=== PATIENT | female | born 1975 | race Caucasian/White ===

== ENCOUNTER 2019-05-11 16:45 | Outpatient (RCR) | payer OTHER | END 2019-05-14 | LOC: M PT 16:45 | PROVIDERS: ATTEND Orthopaedic Surgery | DX: Z47.89 Encounter for other orthopedic aftercare (principal) ==

== ENCOUNTER 2019-06-13 16:34 | Outpatient (RCR) | payer OTHER | END 2019-06-14 | disposition home or self-care (01) | LOC: M PT 16:34 | PROVIDERS: ATTEND Orthopaedic Surgery | DX: M25.572 Pain in left ankle and joints of left foot (principal) ==

== ENCOUNTER → 2019-12-01 | Outpatient (CLI) | payer OTHER ==
--- NOTE | 2019-12-01 10:14 | REP ---
MRI LEFT FOOT WITHOUT CONTRAST: HISTORY: Left foot pain. Question stress fracture. Comparison left foot MRI study is from December 14, 2018. No comparison radiographs are available. There are left ankle radiographs from July 24, 2015. TECHNIQUE: Axial, coronal and sagittal imaging planes utilized. T1- and T2-weighted scans obtain usual fashion with and without fat saturation. MRI FINDINGS: Cortical and medullary bone signal intensity and normal in the metatarsals on T2-weighted scans. Tarsal bone signal intensity and phalangeal bone signal intensity of normal as well. There is mild edema in the subcutaneous fat adjacent to the medial and lateral malleoli at the ankle. A small quantity of joint fluid is visible at the 1st metatarsophalangeal joint. No other joint effusion is evident. There is plantar heel spurring. Plantar fascia appears smooth. There is no evidence to suggest tarsal coalition. No soft tissue mass or cyst is seen. No evidence of subchondral defect lesion. IMPRESSION: Mild soft tissue swelling. No MR evidence to suggest stress fracture or other acute abnormality. There is a small quantity of fluid at the 1st MTP joint. Electronically Signed by Noe Sky MD 12/01/2019 10:18 A
== END ==
LOC: M RAD 07:40
PROVIDERS: ATTEND Orthopaedic Surgery
DX: M79.89 Other specified soft tissue disorders (principal)

== ENCOUNTER 2020-01-16 18:17 | Observation (INO) | payer OTHER ==
[2020-01-17] MEDS ORDERED: VANCOMYCIN 1000MG/20ML VIAL ONE (01:26)
[2020-01-17] MEDS ORDERED: QUEtiapine FUMARATE **XR** 200MG TABLET ONE (09:00)
[2020-01-17] MEDS ORDERED: QUEtiapine FUMERATE XR 50 MG TABER ONE (09:00)
[2020-01-17] MEDS ORDERED: PROPRANOLOL 20 MG TAB ONE (09:00)
[2020-01-17] MEDS ORDERED: ACETAMINOPHEN TAB 650MG DOSE (2X325MG) ONE (10:00)
[2020-01-17] MEDS ORDERED: LEVOTHYROXINE 50MCG TABLET (0.05MG) ONE (10:00)
[2020-01-17] MEDS ORDERED: lamoTRIgine 100MG TAB ONE (10:00)
[2020-01-17] MEDS ORDERED: metFORMIN (GLUCOPHAGE) 500 MG TAB ONE (10:00)
[2020-01-17] MEDS ORDERED: lamoTRIgine 100MG TAB As Ordered ONE (10:03)
[2020-01-17] MEDS ORDERED: metFORMIN (GLUCOPHAGE) 500 MG TAB As Ordered ONE (10:03)
[2020-01-17] MEDS ORDERED: ACETAMINOPHEN TAB 650MG DOSE (2X325MG) As Ordered ONE (10:03)
[2020-01-17] MEDS ORDERED: LEVOTHYROXINE 50MCG TABLET (0.05MG) As Ordered ONE (10:04)
[2020-01-17] MEDS ORDERED: valACYclovir HCL 500 MG TAB As Ordered ONE (12:47)
[2020-01-17] MEDS ORDERED: valACYclovir HCL 500 MG TAB ONE (12:47)
[2020-03-08 01:30] LABS: BASO # 0.1 10^3/uL (0.0-0.2); BASO % 0.4 % (0.0-1.0); EOS # 0.2 10^3/uL (0.0-0.5); EOS % 1.6 % (0.0-3.0); HEMATOCRIT 40.5 % (36.0-47.0); HEMOGLOBIN 12.3 g/dl (12.0-15.5); LYMPH # 3.6 10^3/uL (1.5-5.0); LYMPH % 24.8 % (24.0-44.0); MEAN CORPUSCULAR HEMOGLOBIN 25.4 pg (27.0-33.0); MEAN CORPUSCULAR HGB CONC 30.4 g/dl (32.0-36.5); MEAN CORPUSCULAR VOLUME 83.5 fl (80.0-96.0); MONO # 0.8 10^3/uL (0.0-0.8); MONO % 5.2 % (0.0-5.0); NEUTROPHILS # 9.8 10^3/uL (1.5-8.5); NEUTROPHILS % 67.2 % (36.0-66.0); PLATELET COUNT, AUTOMATED 317 10^3/uL (150-450); RED BLOOD COUNT 4.85 10^6/uL (4.00-5.40); WHITE BLOOD COUNT 14.6 10^3/uL (4.0-10.0)
[2020-03-25 14:06] LABS: HEMATOCRIT 36.6 % (36.0-47.0); HEMOGLOBIN 11.3 g/dl (12.0-15.5); INR 0.98; MEAN CORPUSCULAR HEMOGLOBIN 25.7 pg (27.0-33.0); MEAN CORPUSCULAR HGB CONC 30.9 g/dl (32.0-36.5); MEAN CORPUSCULAR VOLUME 83.4 fl (80.0-96.0); PLATELET COUNT, AUTOMATED 283 10^3/uL (150-450); PROTHROMBIN TIME 13.2 SECONDS (12.5-14.3); RED BLOOD COUNT 4.39 10^6/uL (4.00-5.40); WHITE BLOOD COUNT 11.9 10^3/uL (4.0-10.0)
[2020-03-26 00:59] LABS: HCG, SERUM QUALITATIVE NEGATIVE (NEGATIVE)
[2020-03-26 01:21] LABS: ALBUMIN 3.8 GM/DL (3.2-5.2); ALT/SGPT 21 U/L (12-78); BILIRUBIN,DIRECT 0.1 MG/DL (0.0-0.2); BILIRUBIN,TOTAL 0.3 MG/DL (0.2-1.0); BLOOD UREA NITROGEN 8 MG/DL (7-18); C REACTIVE PROTEIN QUANTITATIV 2.54 MG/DL (0.00-0.30); CALCIUM LEVEL 9.5 MG/DL (8.5-10.1); CARBON DIOXIDE LEVEL 30 MEQ/L (21-32); CHLORIDE LEVEL 104 MEQ/L (98-107); CREATININE FOR GFR 0.91 MG/DL (0.55-1.30); GLOMERULAR FILTRATION RATE > 60.0 (>58); GLUCOSE, FASTING 92 MG/DL (70-100); NT-PRO BNP 59 PG/ML (<125); POTASSIUM SERUM 4.1 MEQ/L (3.5-5.1); SODIUM LEVEL 139 MEQ/L (136-145); TOTAL PROTEIN 7.5 GM/DL (6.4-8.2)
[2020-04-05 11:35] LABS: HSV-1 DNA SEE SEPARATE REPORT; HSV-2 DNA SEE SEPARATE REPORT
[2020-04-10 11:48] LABS: BLOOD UREA NITROGEN 7 MG/DL (7-18); C REACTIVE PROTEIN QUANTITATIV 2.56 MG/DL (0.00-0.30); CALCIUM LEVEL 8.9 MG/DL (8.5-10.1); CARBON DIOXIDE LEVEL 27 MEQ/L (21-32); CHLORIDE LEVEL 105 MEQ/L (98-107); CHOLESTEROL LEVEL 135 MG/DL (<200); CHOLESTEROL RISK RATIO 3.292 (<5); FREE T3 2.1 PG/ML (2.2-4.0); GLOMERULAR FILTRATION RATE > 60.0 (>58); GLUCOSE, FASTING 110 MG/DL (70-100); HDL CHOLESTEROL 41 MG/DL (>40); HEMOGLOBIN A1c 5.7 %; LDL CHOLESTEROL 65 MG/DL (<100); NON-HDL-C 94 MG/DL; SODIUM LEVEL 138 MEQ/L (136-145); TRIGLYCERIDES LEVEL 143 MG/DL (<150); TROPONIN I < 0.02 NG/ML (< 0.10)
== END 2020-01-17 14:35 | disposition home or self-care (01) ==
LOC: M ED 18:17 → M MSPAV 18:18 → UNDOADMIN 01-17 02:20 → M MSPAV 01-17 02:20 → UNDODISIN 01-17 09:40
PROVIDERS: ADMIT Internal Medicine
DX: L57.0 Actinic keratosis (principal); A60.00 Herpesviral infection of urogenital system, unspecified; E03.9 Hypothyroidism, unspecified; G43.909 Migraine, unspecified, not intractable, without status migrainosus; G47.00 Insomnia, unspecified; Z79.84 Long term (current) use of oral hypoglycemic drugs; Z79.899 Other long term (current) drug therapy; Z88.0 Allergy status to penicillin; Z88.2 Allergy status to sulfonamides; Z88.1 Allergy status to other antibiotic agents
CPT/HCPCS: 80048; 80061; 80076; 83036; 83880; 84443; 84481; 84703; 85025; 85027; 85610; 86140; 87040; 87529; 93970; J3370

== ENCOUNTER → 2020-01-31 | Outpatient (REF) | payer OTHER | LOC: M LAB REF 08:00 | PROVIDERS: ATTEND Dermatology | DX: L56.5 Disseminated superficial actinic porokeratosis (DSAP) (principal) ==

== ENCOUNTER → 2020-02-10 | Outpatient (REF) | payer OTHER | LOC: M LAB REF 17:27 | PROVIDERS: ATTEND Dermatology | DX: L03.115 Cellulitis of right lower limb (principal) ==

== ENCOUNTER → 2020-02-24 | Outpatient (CLI) | payer OTHER ==
--- NOTE | 2020-03-07 17:59 | REP ---
BILATERAL LOWER EXTREMITY DOPPLER ULTRASOUND: CLINICAL: Venous insufficiency, edema. TECHNIQUE: Real time, villasenor scale and color evaluation using linear high frequency transducer. FINDINGS: Ultrasound examination of the bilateral lower extremity deep venous structures from the common femoral vein to the popliteal vein demonstrate normal compressibility, flow and wave patterns in response to respiration and augmentation. There is no evidence for deep venous thrombosis bilaterally. The right lower extremity demonstrates minimal reflux in the right common femoral vein and right mid to distal superficial femoral vein, primarily with the bed tipped and to a lesser extent in the standing position. Minimal reflux was also noted in the anterior accessory and lesser saphenous veins. There is no evidence for reflux through the greater saphenous vein, which measures between 4.5 mm and 1.9 mm diameter. The left lower extremity demonstrates no reflux through the deep or superficial system and the greater saphenous vein measures between 5.0 and 3.2 mm diameter. IMPRESSION: 1. No evidence for deep venous thrombosis bilaterally. 2. Very minimal reflux noted in the right lower extremity as detailed above, primarily with the bed tipped. MTDD
== END ==
LOC: M RAD 07:01
PROVIDERS: ATTEND Physician Assistant
DX: I87.2 Venous insufficiency (chronic) (peripheral) (principal); R60.9 Edema, unspecified

== ENCOUNTER → 2020-09-05 | Outpatient (CLI) | payer OTHER ==
--- NOTE | 2020-09-05 18:37 | REPVR ---
PROCEDURE INFORMATION: Exam: MR Left Lower Extremity Other Than Joint Without Contrast; Foot Exam date and time: 09/05/2020 5:26 PM Age: 45 years old Clinical indication: Pain and condition or disease; Left; Patient HX: Non displaced FX 3rd mt bone lt foot TECHNIQUE: Imaging protocol: MR of the Left lower extremity without contrast. Exam focused on the foot. COMPARISON: 1. MRI FOOT WITHOUT CONTRAST LEFT 12/01/2019 7:56 AM 2. CR ANKLE COMPLETE LEFT 07/24/2015 2:08:19 PM FINDINGS: Bones and cartilage: There is no acute fracture. No stress fracture or stress reaction. Moderate plantar calcaneal spur which is slightly edematous. No other abnormal signal within bone. No active erosions or active periostitis. No dislocation. LIGAMENTS: Lisfranc ligament: Lisfranc ligament is intact. TENDONS: Flexor tendons of foot: Unremarkable. No evidence of tear. Tibialis posterior tendon: Unremarkable as visualized. Peroneal tendons: Unremarkable as visualized. Extensor tendons of foot: Unremarkable. No evidence of tear. Tibialis anterior tendon: Unremarkable as visualized. Achilles tendon: Minimal thickening of the distal Achilles tendon with minimal increased signal consistent with minimal tendinopathy. Mild adjacent soft tissue edema. Tarsal canal (Sinus tarsi): Unremarkable. Tarsal tunnel: Unremarkable. Muscles: Minimal edema in the interosseous musculature of the forefoot, as well as in the extensor digitorum and abductor hallucis muscles. Soft tissues: There is subcutaneous soft tissue edema at the dorsum of the foot, more pronounced dorsal laterally, and extending medially into the proximal to mid great toe. Additional subcutaneous edema posterior to the Achilles tendon. There is also edema medially more than laterally at the ankle. First metatarsophalangeal joint effusion without significant synovitis. Tibiotalar joint effusion with mild synovitis, and posterior subtalar joint effusion as well. Between the distal 2nd and 3rd metatarsals, there is a new small area of increased T2 and intermediately decreased T1 weighted signal with surrounding edema. This focus of abnormal signal measures 5 x 4 mm as on series 601, image 1 frame 20. Plantar fascia: Mild fusiform thickening of the central cord of the plantar fascia beginning approximately 1.2 cm distal to the Achilles attachment and extending for 2.0 cm proximal to distal, measuring up to 0.6 cm in thickness. This may be from a remote injury or prior plantar fasciitis, as there is no abnormal signal more indicative of a plantar fibroma. There may be minimal active plantar fasciitis with minimal edema around the central cord more proximally. No fluid-filled tear. Lateral cord is unremarkable. IMPRESSION: 1. No stress or other acute fracture is seen. 2. Minimal acute plantar fasciitis proximally, with plantar calcaneal spur which is mildly edematous and minimal adjacent soft tissue edema, and mild fusiform thickening without signal abnormality slightly more distally which may be from prior injury or prior plantar fasciitis. 3. New small focus of fluid signal within interosseous musculature between the distal 2nd and 3rd metatarsals measuring 5 x 4 mm with a small amount of surrounding edema. This could represent a ganglion cyst. Small bland or infected fluid collection could be present, or potentially a small hematoma which could be from a partial muscle tear. 4. Minimal distal Achilles tendinopathy. 5. Multifocal soft tissue edema in the dorsum of the foot, medial great toe, at the ankle, and adjacent to the Achilles tendon. This could be bland or infected. 6. Minimal edema in the interosseous musculature of the foot as well as in the abductor hallucis muscle. Electronically signed by: Lay Rosa On 09/05/2020 18:37:13 PM
== END ==
LOC: M PLARAD 15:06
PROVIDERS: ATTEND Physician Assistant
DX: S92.335D Nondisplaced fracture of third metatarsal bone, left foot, subsequent encounter for fracture with routine healing (principal)

== ENCOUNTER 2020-09-21 11:32 | Emergency (ER) | payer OTHER ==
[~2020-09-21] VITALS: Ht 165.1 cm; Wt 148.7 kg
[2020-09-21] MEDS ORDERED: LEVO50TA5 (11:42)
[2020-09-21] MEDS ORDERED: LAMO200T3 (11:42)
[2020-09-21] MEDS ORDERED: METF500T13 (11:42)
[2020-09-21] MEDS ORDERED: AIMO70IN (11:42)
[2020-09-21] MEDS ORDERED: NAPR-885 (11:42)
[2020-09-21] MEDS ORDERED: QUET400T42 (11:42)
[2020-09-21] MEDS ORDERED: CLON0.2T (11:42)
--- NOTE | 2020-09-21 13:04 | REP ---
INDICATION: edema. COMPARISON: 12/06/2019 and 02/24/2020. TECHNIQUE: Duplex ultrasound of the left lower extremity deep veins. FINDINGS: The deep veins demonstrate normal compression, normal Doppler color flow and normal Doppler waveforms with respiration augmentation at multiple levels from the popliteal vein to the common femoral vein. IMPRESSION: There is no left lower extremity deep vein thrombus. <Electronically signed by Jaylan Hensley > 09/21/20 1300
[2020-09-21] MEDS ORDERED: ACETAMINOPHEN 325 MG TAB PO ONE (13:05)
[2020-09-21 13:53] VITALS: BP 140/79
== END 2020-09-21 13:58 | disposition home or self-care (01) ==
LOC: M ED 11:32
DX: R60.0 Localized edema (principal); E11.9 Type 2 diabetes mellitus without complications; I10 Essential (primary) hypertension; Z79.84 Long term (current) use of oral hypoglycemic drugs; Z79.899 Other long term (current) drug therapy; Z88.0 Allergy status to penicillin; Z88.1 Allergy status to other antibiotic agents; Z88.8 Allergy status to other drugs, medicaments and biological substances

== ENCOUNTER → 2020-10-05 | Outpatient (CLI) | payer OTHER ==
[~2020-10-05] MED LIST: AIMO70IN; CLON0.2T; LAMO200T3; LEVO50TA5; METF500T13; NAPR-885; QUET400T42
--- NOTE | 2020-10-05 20:23 | REPVR ---
PROCEDURE INFORMATION: Exam: MR Left Lower Extremity Joint Without Contrast; Ankle Exam date and time: 10/05/2020 7:32 PM Age: 45 years old Clinical indication: Pain; Ankle and foot; Left; Additional info: FX of 3rd met bone TECHNIQUE: Imaging protocol: MR of the Left lower extremity without contrast. Exam focused on the ankle. COMPARISON: US Duplex, Ext,LOWER veins,unilat LEFT 09/21/2020 12:47 PM FINDINGS: Bones and cartilage: Unremarkable. Joint spaces: No joint effusion. LIGAMENTS: Distal tibiofibular syndesmosis: Unremarkable. No tear. Anterior talofibular ligament: Unremarkable. No tear. Posterior talofibular ligament: Unremarkable. No tear. Calcaneofibular ligament: Unremarkable. No tear. Deltoid ligament complex: Unremarkable. No tear. TENDONS: Flexor tendons of foot: Unremarkable as visualized. Tibialis posterior tendon: Unremarkable as visualized. Peroneal tendons: Unremarkable as visualized. Extensor tendons of foot: Unremarkable as visualized. Tibialis anterior tendon: Unremarkable as visualized. Achilles tendon: Unremarkable as visualized. Tarsal canal (Sinus tarsi): Unremarkable. Normal signal of the fat. Tarsal tunnel: Unremarkable. Muscles: Unremarkable. Soft tissues: Mild soft tissue swelling over the medial and lateral malleolus. Soft tissue swelling on the dorsum of the foot. Trace amount of fluid in the retrocalcaneal bursa. Plantar fascia: Plantar fascia is unremarkable. IMPRESSION: 1. No evidence of fracture of the visualized portion of the 3rd metatarsal. 2. Soft tissue swelling over the medial and lateral malleolus extending onto the dorsum of the foot. Electronically signed by: Ruby Zamarripa On 10/05/2020 20:22:55 PM
== END ==
LOC: M RAD 18:14
PROVIDERS: ATTEND Physician Assistant
DX: S92.335D Nondisplaced fracture of third metatarsal bone, left foot, subsequent encounter for fracture with routine healing (principal); X58.XXXD Exposure to other specified factors, subsequent encounter

== ENCOUNTER 2023-02-02 13:41 | Emergency (ER) | payer OTHER, SELFPAY ==
[~2023-02-02] VITALS: Ht 165.1 cm; Wt 131.8 kg
[2023-02-02 15:47] LABS: BASO # 0.1 10^3/uL (0.0-0.2); BASO % 0.6 % (0.0-1.0); EOS # 0.1 10^3/uL (0.0-0.5); EOS % 1.2 % (0.0-3.0); HEMATOCRIT 41.3 % (36.0-47.0); HEMOGLOBIN 12.7 g/dl (12.0-15.5); LYMPH # 3.3 10^3/uL (1.5-5.0); LYMPH % 29.2 % (24.0-44.0); MEAN CORPUSCULAR HGB CONC 30.8 g/dl (32.0-36.5); MEAN CORPUSCULAR VOLUME 87.7 fl (80.0-96.0); MONO # 0.7 10^3/uL (0.0-0.8); PLATELET COUNT, AUTOMATED 279 10^3/uL (150-450); RED BLOOD COUNT 4.71 10^6/uL (4.00-5.40); WHITE BLOOD COUNT 11.2 10^3/uL (4.0-10.0)
[2023-02-02] MEDS ORDERED: dexAMETHasone 20MG/5ML VIAL IV ONE (16:00)
[2023-02-02] MEDS ORDERED: diphenhydrAMINE 50MG/ML VIAL IV ONE (16:00)
[2023-02-02] MEDS ORDERED: METOCLOPRAMIDE INJ 10MG/2ML VIAL IV ONE (16:00)
[2023-02-02 16:01] LABS: INR 1.28; PROTHROMBIN TIME 15.7 SECONDS (12.5-14.5)
[2023-02-02 16:02] LABS: PARTIAL THROMBOPLASTIN TIME 33.3 SECONDS (24.8-34.2)
[2023-02-02 16:14] LABS: BLOOD UREA NITROGEN 11 MG/DL (9-23); CALCIUM LEVEL 9.3 MG/DL (8.5-10.1); CARBON DIOXIDE LEVEL 23 MMOL/L (20-31); CHLORIDE LEVEL 109 MMOL/L (98-107); CK-MB VALUE MASS < 1.0 NG/ML (<3.6); CREATININE FOR GFR 0.97 MG/DL (0.55-1.30); GLOMERULAR FILTRATION RATE > 60.0 (>58); GLUCOSE, FASTING 73 MG/DL (60-100); POTASSIUM SERUM 4.2 MMOL/L (3.5-5.1); SODIUM LEVEL 141 MMOL/L (136-145)
[2023-02-02 16:18] LABS: CPK CREATINE PHOSPHOKINASE 71 U/L (34-145)
[2023-02-02 16:28] LABS: RSV AMPLIFICATION NEGATIVE (NEGATIVE)
[2023-02-02] MEDS ORDERED: KETOROLAC 30 MG/ML 1ML VIAL IV ONE (18:45)
[2023-02-02] MEDS ORDERED: ACETAMINOPHEN *IV* 1,000 MG in IV 1 EA IV ONE (21:10)
[2023-02-02] MEDS ORDERED: diazePAM 10MG/2ML SYRINGE IV ONE (21:10)
[2023-02-02] MEDS ORDERED: MAG SULF 1GM/100ML (MAG RUN) 1 GM in IV 1 EA IV ONE (21:10)
[2023-02-03] MEDS ORDERED: RIME75TA PO (00:17)
[2023-02-03] MEDS ORDERED: PRED20TA PO (00:17)
[2023-02-03 00:32] VITALS: BP 124/78; TEMP 98.8; O2SAT 100
== END 2023-02-03 00:37 | disposition home or self-care (01) ==
LOC: M ED 13:41
DX: G43.911 Migraine, unspecified, intractable, with status migrainosus (principal); E03.9 Hypothyroidism, unspecified; F41.9 Anxiety disorder, unspecified; K21.9 Gastro-esophageal reflux disease without esophagitis; Z79.4 Long term (current) use of insulin; Z79.899 Other long term (current) drug therapy; Z79.52 Long term (current) use of systemic steroids
CPT/HCPCS: 70450; 70551; 71045; 80048; 82550; 82553; 84484; 85025; 85610; 85730; 87631; 93005; 93041; 96374; 96375; 99285; J0131; J1100; J1200; J1885; J2765; J3360; J3475

== ENCOUNTER 2023-10-09 11:03 | Day surgery (SDC) | payer OTHER ==
[~2023-10-09] VITALS: Ht 165.1 cm; Wt 142.9 kg
[~2023-10-09 11:03] MED LIST changes: +ATOR1TAB21 PO; +BAYE81TA7 PO; +CLON-589 PO; +D 50CAP2 PO; +FREM225A SC; +IFERCAP PO; +LAMO100T3 PO; +LEVO25TA5 PO; -METF500T13; +METF500T13 PO; +PANT40TA29 PO; +PRED20TA PO; +QUET400T2 PO; +RA N1TAB PO; +RIME75TA PO; +TOPI100T9 PO; +VERA120C3 PO; +VITA1CAP25 PO; +XARE20TA PO
[2023-10-09] MEDS: LR 1,000 ML IV SCH (12:21)
[2023-10-09] MEDS ORDERED: ONDANSETRON 4MG 2ML VIAL As Ordered ONE (13:39)
[2023-10-09] MEDS ORDERED: propofoL 200 MG/20 ML VIAL As Ordered ONE (13:40)
[2023-10-09] MEDS ORDERED: SUGAMMADEX SODIUM 500 MG/5 ML VIAL (BRIDION) As Ordered ONE (13:40)
[2023-10-09] MEDS ORDERED: ROCURONIUM BROMIDE 50MG/5ML VIAL As Ordered ONE (13:40)
[2023-10-09] MEDS ORDERED: KETOROLAC 60MG 2ML VIAL As Ordered ONE (13:40)
[2023-10-09] MEDS ORDERED: LIDOCAINE 2% 100MG/5ML SDV (FOR ANES.) As Ordered ONE (13:40)
[2023-10-09] MEDS ORDERED: MIDAZOLAM INJ 2MG/2ML VIAL As Ordered ONE (13:46)
[2023-10-09] MEDS ORDERED: fentaNYL 100 MCG/2 ML INJECTION As Ordered ONE (13:46)
[2023-10-09] MEDS ORDERED: ACETAMINOPHEN 1000MG 100ML IV BAG As Ordered ONE (14:20)
[2023-10-09] MEDS ORDERED: diphenhydrAMINE 50MG/ML VIAL IV PRN (14:50)
[2023-10-09] MEDS ORDERED: oxyCODONE 5MG TAB PO PRN (14:50)
[2023-10-09] MEDS ORDERED: LR 1,000 ML IV SCH (14:50)
[2023-10-09] MEDS: METOCLOPRAMIDE INJ 10MG/2ML VIAL IV PRN (15:03)
[2023-10-09] MEDS: ONDANSETRON 4MG 2ML VIAL IV PRN (15:03)
[2023-10-09 15:50] VITALS: BP 118/74; TEMP 97; O2SAT 100
== END 2023-10-09 16:08 | disposition home or self-care (01) ==
LOC: M SDC 11:03
PROVIDERS: ATTEND Surgery
DX: K62.89 Other specified diseases of anus and rectum (principal); K64.9 Unspecified hemorrhoids; K21.9 Gastro-esophageal reflux disease without esophagitis; E11.9 Type 2 diabetes mellitus without complications; D68.51 Activated protein C resistance; E03.9 Hypothyroidism, unspecified; E78.00 Pure hypercholesterolemia, unspecified; Z79.01 Long term (current) use of anticoagulants; Z79.890 Hormone replacement therapy; Z79.899 Other long term (current) drug therapy; Z79.84 Long term (current) use of oral hypoglycemic drugs; Z86.73 Personal history of transient ischemic attack (TIA), and cerebral infarction without residual deficits; Z88.0 Allergy status to penicillin; Z88.1 Allergy status to other antibiotic agents; Z88.2 Allergy status to sulfonamides; Z88.8 Allergy status to other drugs, medicaments and biological substances
CPT/HCPCS: 46600; J0131; J1100; J1885; J2250; J2405; J2765; J3010